=== PATIENT | male | born 1970 | race Caucasian/White ===

== ENCOUNTER → 2022-01-27 | Outpatient (CLI) | payer BC ==
[2022-01-27 11:26] LABS: HEMOGLOBIN 15.7 gm/dl (14.0-17.5); RED BLOOD COUNT 4.98 M/UL (4.20-5.50); WHITE BLOOD COUNT 11.3 K/UL (4.5-11.0)
[2022-01-27 11:48] LABS: BUN/CREATININE RATIO 13 (0-10)
[2022-01-28 07:16] LABS: RHEUMATOID ARTHRITIS FACTOR <10.0 IU/mL (<14.0); VITAMIN D, 25-HYDROXY 18.4 ng/mL (30.0-100.0)
[2022-01-29 07:12] LABS: CHOLESTEROL, TOTAL 278 mg/dL (100-199); HDL CHOLESTEROL 47 mg/dL (>39); LDL CHOLESTEROL CALC 195 mg/dL (0-99); LDL/HDL RATIO 4.1 ratio (0.0-3.6); T. CHOL/HDL RATIO 5.9 ratio (0.0-5.0); TRIGLYCERIDES 189 mg/dL (0-149)
[2022-01-29 08:13] LABS: PROSTATE-SPECIFIC AG 2.4 ng/mL (0.0-4.0)
== END ==
LOC: LAB 10:19
PROVIDERS: Family Medicine
DX: Z12.5 Encounter for screening for malignant neoplasm of prostate (principal); F41.9 Anxiety disorder, unspecified; I10 Essential (primary) hypertension; M25.50 Pain in unspecified joint
CPT/HCPCS: 36415; 80053; 80061; 83735; 84153; 84443; 84550; 85027; 85652; 86038; 86200; 86431